=== PATIENT | male | born 1960 | race Caucasian/White ===

== ENCOUNTER 2020-08-03 13:55 | Inpatient (IN) ==
[2020-08-03] MEDS ORDERED: SODIUM CHLORIDE 1,000 ML IV STA ×2 (14:27→17:25)
--- NOTE | 2020-08-03 14:39 | ED.PDOC ---
General ED Provider: Dr. JIMMY LOAIZA Chief Complaint: Headache Stated Complaint: Feeling very bad, severe head ache, poor appetite, minimal intake for past 2 weeks. Positive for COVID 19 on07/30 Time Seen by Provider: 08/03/20 14:00 Mode of Arrival: Walk-In Information Source: Patient Exam Limitations: No limitations Primary Care Provider: LORENA HOOVER Nursing and Triage Documentation Reviewed and Agree: Yes Does patient meet sepsis criteria?: No If yes, has appropriate treatment been initiated?: No System Inflammatory Response Syndrome: Not Applicable Sepsis Protocol: For patient's 13 years and over: Temp is 96.8 and below OR 101 and greater Pulse >90 BPM Resp >20/minute Acutely Altered Mental Status Are patient's symptoms suggestive of a new infection, such as: -Pneumonia -Skin, Soft Tissue -Endocarditis -UTI -Bone, Joint Infection -Implantable Device -Acute Abdominal Infection -Wound Infection -Meningitis -Blood Stream Catheter Infection -Unknown Neurological Complaint Exam Headache Complaint/Exam Onset: Gradual Duration: 7days Symptoms Are: Still present Timing: Constant Episodes Lasting: Days Worst Headache Ever: No Initial Severity: Severe Current Severity: Moderate Location: Diffuse Character: Reports Pressure Aggravating: Reports Position change Alleviating: Reports Position change Associated Signs and Symptoms: Reports Dizziness, Seizure, Nausea, Vomiting, Sinus pressure, Fever, Neck pain, Neck stiffness, Decreased LOC and Visual changes Related Surgical History: Reports None SAH Risk Factors: Reports None Meningitis Risk Factors: Reports None SDH Risk Factors: Reports None Temporal Arteritis Risk Factors: Reports None Normal Head CT Within Last 12 Months: No Temporal Artery Tenderness: Present None Sinus Tenderness: Present Frontal TMJ Tenderness: Present None Meningeal Signs Positive: No Pain on Passive Flexion-Positive Kernig's: No ROM Limited In: No Limitiations Focal Weakness: Present None Focal Sensory Loss: Present None Gait: Normal Nystagmus Present: No Gag Reflex Present: No [id number]: Normal Findings Babinski Sign: Negative Right and Negative Left Heel to Toe Normal: Yes Differential Diagnoses: Sinus Headache, Tension Headache and Viral Syndrome Review of Systems Review Of Systems Constitutional: Reports No symptoms, Fever, Malaise, Weakness and Loss of appetite Eyes: Reports No symptoms Ears, Nose, Mouth, Throat: Reports No symptoms Respiratory: Reports No symptoms Cardiac: Reports No symptoms GI: Reports No symptoms : Reports No symptoms Musculoskeletal: Reports No symptoms Skin: Reports No symptoms Neurological: Reports No symptoms Endocrine: Reports No symptoms Hematologic/Lymphatic: Reports No symptoms All Other Systems: Reviewed and Negative PFSH Family History Other No known health problems Social History (Updated 08/03/20 @ 19:47 by ROGER MIGUEL LPN) Passive smoking exposure: No Surgical History (Updated 08/03/20 @ 19:46 by ROGER MIGUEL LPN) No history of previous surgery Physical Exam Physical Exam Appearance: Reports Well-appearing, No pain distress and Well-nourished; Denies Not Applicable Ill-appearing: None Pain Distress: None Eyes: Reports MIRIAM, EOMI and Conjunctiva clear ENT: Reports Ears normal, Nose normal and Oropharynx normal Neck: Supple Respiratory: Reports Airway patent, Breath sounds clear, Breath sounds equal and Respirations nonlabored Cardiovascular: Reports RRR, Pulses normal, No rub and No murmur GI/: Reports Soft, Nontender, No masses, Bowel sounds normal and No Organomegaly Musculoskeletal: Reports Normal strength, ROM intact, No edema and No calf tenderness Skin: Reports Warm, Dry and Normal color Neurological: Reports Sensation intact, Motor intact, Reflexes intact, Cranial nerves intact, Alert and Oriented Psychiatric: Reports Affect appropriate and Mood appropriate Interpretation Radiology Interpretation Exam Interpreted: CT Scan and Other (Scattered ground-glass with alveolar opacity compatible with the given diagnosis.) Xray Comments: Chest:No evidence of pulmonary embolus. Physician Notification Case Discussed Physician Notified: Dr Lowe:Discussed Case-advised to transfer to [facility] - adm hospitalist Time of Notification: 16:00 Physician Notified: Dr Lowe advised no beds at [facility]/advised job placement officer pt to [facility]- Time of Notification: 17:15 Endorsed To/Discussed With: Admit to Dr Hoover-Rocio protocol Time of Discussion: 17:20 Admit To: Inpatient Consult With: Chrissy/Kiko Critical Care Note Critical Care Note Total Critical Care Time (mins): 60 Course Course Hematology/Chemistry: 08/04/20 04:50 08/04/20 04:50 Orders, Labs, Meds: Lab Review 08/03/20 08/03/20 08/03/20 14:50 14:50 14:50 WBC 8.53 RBC 4.24 L Hgb 13.7 L Hct 39.2 L MCV 92.5 MCH 32.3 H MCHC 34.9 RDW Coeff of Jovana 12.4 Plt Count 198 Immature Gran % (Auto) 0.9 Neut % (Auto) 77.3 H Lymph % (Auto) 15.5 Cedar % (Auto) 6.2 Eos % (Auto) 0.0 Baso % (Auto) 0.1 Neut # (Auto) 6.6 Lymph # (Auto) 1.3 Cedar # (Auto) 0.5 Eos # (Auto) 0.0 Baso # (Auto) 0.0 Immature Gran # (Auto) 0.1 Sodium 135.0 Potassium 3.98 Chloride 101.4 Carbon Dioxide 25.6 Anion Gap 11.98 BUN 24.3 H Creatinine 1.10 Estimated GFR (MDRD) 69.00 BUN/Creatinine Ratio 22.09 Glucose 130.9 H Lactic Acid Calcium 7.97 L Magnesium 2.31 H Ferritin Total Bilirubin 0.95 AST 195.6 H ALT 169.2 H Alkaline Phosphatase 105.5 Troponin I Total Protein 7.15 Albumin 3.87 Globulin 3.28 Albumin/Globulin Ratio 1.17 Lipase 156.2 Procalcitonin 0.49 08/03/20 08/03/20 08/03/20 14:50 14:50 14:50 WBC RBC Hgb Hct MCV MCH MCHC RDW Coeff of Jovana Plt Count Immature Gran % (Auto) Neut % (Auto) Lymph % (Auto) Cedar % (Auto) Eos % (Auto) Baso % (Auto) Neut # (Auto) Lymph # (Auto) Cedar # (Auto) Eos # (Auto) Baso # (Auto) Immature Gran # (Auto) Sodium Potassium Chloride Carbon Dioxide Anion Gap BUN Creatinine Estimated GFR (MDRD) BUN/Creatinine Ratio Glucose Lactic Acid 1.12 Calcium Magnesium Ferritin 3150.00 H Total Bilirubin AST ALT Alkaline Phosphatase Troponin I 0.034 Total Protein Albumin Globulin Albumin/Globulin Ratio Lipase Procalcitonin Orders Category Date Time Status ABG DRAW REQUEST Routine CARDIO 08/03/20 17:23 Completed OXYGEN Routine CARDIO 08/03/20 17:26 Active ACTIVITY .BR with BRP CARE 08/03/20 17:27 Completed CONTINUOUS PULSE OX (NURSING) PULSEOX CARE 08/03/20 17:23 Completed INTAKE & OUTPUT Q8HR CARE 08/03/20 17:26 Active NPO REMINDER: IMAGING ONCE CARE 08/03/20 14:24 Completed VITAL SIGNS Q4HR CARE 08/03/20 17:27 Active REGULAR DIET DIETARY 08/03/20 Dinner Ordered IV [ED IV/MEDIPORT/POWERPORT] .ONCE EMERGENCY 08/03/20 14:27 Active ABG COOX Routine LAB 08/03/20 17:55 Completed BLOOD CULTURE (ED ONLY) Stat LAB 08/03/20 14:50 Received C-REACTIVE PROTEIN Routine LAB 08/03/20 14:50 Received CBC W/ AUTO DIFF Stat LAB 08/03/20 14:50 Completed CMP [COMPREHENSIVE METABOLIC PANEL] Stat LAB 08/03/20 14:50 Completed FERRITIN Routine LAB 08/03/20 14:50 Completed LACTIC ACID Stat LAB 08/03/20 14:50 Completed LIPASE Stat LAB 08/03/20 14:50 Completed MAGNESIUM Stat LAB 08/03/20 14:50 Completed PROCALCITONIN Stat LAB 08/03/20 14:50 Completed PT WITH INR Routine LAB 08/03/20 17:38 Completed TROPONIN I Routine LAB 08/03/20 14:50 Completed UA [URINALYSIS C & S IF INDICATED] Stat LAB 08/03/20 20:30 Completed 0.9 % Sodium Chloride [Saline Flush] MEDS 08/03/20 14:27 Active 1 syr IVF PRN PRN Acetaminophen [Tylenol] MEDS 08/03/20 17:26 Active 650 mg PO Q4H PRN Hydrocodone Bit/Acetaminophen [[place] 5-325] MEDS 08/03/20 17:26 Active 1 tab PO Q6H PRN Ondansetron HCl/Pf [Zofran 4 mg/2 ml] MEDS 08/03/20 17:26 Active 4 mg IVP Q6H PRN Sodium Chloride 0.9% [Sodium Chloride] 1,000 ml MEDS 08/03/20 17:25 Discontinued IV 125 mls/hr Sodium Chloride 0.9% [Sodium Chloride] 1,000 ml MEDS 08/03/20 14:27 Discontinued IV BOLUS RESUSCITATION STATUS Routine OTHERS 08/03/20 17:[address] CHEST PE PROTOCOL Stat RADS 08/03/20 14:24 Completed Medications Generic Name Dose Route Start Last Admin Trade Name Freq PRN Reason Stop Dose Admin Acetaminophen 650 mg 08/03/20 17:26 08/03/20 18:32 Acetaminophen 325 Mg Tablet PO 650 mg Q4H PRN Administration Fever >101 Hydrocodone Bitart/Acetaminophen 1 tab 08/03/20 17:26 Hydrocodone Bit/Acetaminophen 5/325 Mg Tablet PO Q6H PRN Pain Albuterol Sulfate 2 puff 08/03/20 18:18 08/04/20 05:18 Albuterol Sulfate (Ventolin Hfa) 18 Gm 1 Puff With Spacer IH 2 puff RTTID PARDEEP Administration Atorvastatin Calcium 40 mg 08/03/20 21:00 08/03/20 21:14 Atorvastatin Calcium 20 Mg Tablet PO 40 mg BEDTIME PARDEEP Administration Budesonide/Formoterol Fumarate 2 puff 08/03/20 21:00 08/04/20 09:44 Budesonide/Formoterol Fumarate 160/4.5 Mcg Inhaler IH 2 puff BID PARDEEP Administration Cholecalciferol 5,000 unit 08/03/20 18:00 08/04/20 08:35 Cholecalciferol (Vitamin D3) 1,000 Unit (25 Mcg) Tablet PO 5,000 unit DAILY PARDEEP Administration Dexamethasone Sodium Phosphate 6 mg 08/03/20 18:00 08/04/20 08:35 Dexamethasone Sod Phos 10 Mg/Ml Inj IM 6 mg DAILY PARDEEP Administration Enoxaparin Sodium 40 mg 08/04/20 09:00 08/04/20 08:36 Enoxaparin Sodium 40 Mg/0.4 Ml Syr SUBCUT 40 mg DAILY PARDEEP Administration Famotidine 40 mg 08/03/20 18:00 08/04/20 05:34 Famotidine 20 Mg Tablet PO 40 mg BIDAC PARDEEP Administration REMDESIVIR SOLUTION 100 mg/ 270 mls @ 270 mls/hr 08/05/20 09:00 Sodium Chloride IV 08/08/20 12:00 DAILY PARDEEP CEFTRIAXONE/D5W 1 GM PREMIX 1 gm in 50 mls @ 75 mls/hr 08/03/20 21:00 08/03/20 21:28 Rocephin 1 Gm/50 Ml D5w IV 08/06/20 20:59 75 mls/hr BEDTIME PARDEEP Administration Ondansetron HCl 4 mg 08/03/20 17:26 Ondansetron Hcl/Pf 4 Mg/2 Ml Sdv IVP Q6H PRN Nausea / Vomiting Sodium Chloride 1 syr 08/03/20 14:27 08/03/20 15:36 0.9% Sodium Chloride 10 Ml Disp.Syrin IVF 1 syr PRN PRN Administration To flush IV Zinc Sulfate 220 mg 08/03/20 18:00 08/04/20 08:35 Zinc Sulfate 220 Mg Capsule PO 220 mg DAILY PARDEEP Administration Discontinued Medications Generic Name Dose Route Start Last Admin Trade Name Freq PRN Reason Stop Dose Admin Sodium Chloride 1,000 mls @ 1,000 mls/hr 08/03/20 14:27 08/03/20 15:36 Sodium Chloride IV 08/03/20 15:26 1,000 mls/hr BOLUS STA Administration Sodium Chloride 1,000 mls @ 125 mls/hr 08/03/20 17:25 08/03/20 18:50 Sodium Chloride IV 08/04/20 01:24 125 mls/hr .Q8H STA Administration REMDESIVIR SOLUTION 200 mg/ 290 mls @ 145 mls/hr 08/03/20 17:36 08/03/20 18:17 Sodium Chloride IV 08/03/20 19:35 Not Given ONCE ONE REMDESIVIR SOLUTION 100 mg/ 270 mls @ 270 mls/hr 08/03/20 18:00 08/03/20 18:16 Sodium Chloride IV Not Given DAILY PARDEEP REMDESIVIR SOLUTION 200 mg/ 290 mls @ 145 mls/hr 08/04/20 09:00 08/04/20 11:1 5 Sodium Chloride IV 08/04/20 10:59 145 mls/hr ONCE ONE Administration Vital Signs: Temp Pulse Resp BP Pulse Ox 08/03/20 14:00 100.7 F H 69 18 122/59 L 91 L Discharge Plan Discharge Patient Disposition: ADMITTED INPATIENT Discharge Problem: Headache, Pneumonia due to 2019-nCoV ED Provider: JIMMY LOAIZA Condition: Stable Physician Progress Note: []
[2020-08-03 14:57] LABS: BASOPHILS % (AUTO) 0.1 % (0.0-3.0); HEMATOCRIT 39.2 % (42.0-52.0); HEMOGLOBIN 13.7 g/dl (14.0-18.0); IMMATURE GRANULOCYTE # (AUTO) 0.1 (0.0-1.0); IMMATURE GRANULOCYTE % (AUTO) 0.9 % (0.0-5.0); LYMPHOCYTES # (AUTO) 1.3 K/uL (0.60-3.4); LYMPHOCYTES % (AUTO) 15.5 (10.0-50.0); MEAN CORPUSCULAR HEMOGLOBIN 32.3 pg (27.0-31.0); MEAN CORPUSCULAR HGB CONC 34.9 (31.8-35.4); MEAN CORPUSCULAR VOLUME 92.5 fl (80.0-94.0); MONOCYTES # (AUTO) 0.5 K/uL (0.4-2.0); MONOCYTES % (AUTO) 6.2 (0-10); NEUTROPHILS # (AUTO) 6.6 K/ul (2.0-6.9); NEUTROPHILS % (AUTO) 77.3 % (42.2-75.2); PLATELET COUNT 198 10^3/uL (140-440); RDW COEFFICIENT OF VARIATION 12.4 % (11.6-14.8); RED BLOOD COUNT 4.24 10^6/ul (4.70-6.10); WHITE BLOOD COUNT 8.53 K/ul (4.2-10.2)
[2020-08-03 15:14] LABS: ALANINE AMINOTRANSFERASE 169.2 U/L (0-50); ALBUMIN 3.87 g/dL (3.5-5.0); ALKALINE PHOSPHATASE 105.5 U/L (56-119); ASPARTATE AMINO TRANSFERASE 195.6 U/L (17-59); BILIRUBIN,TOTAL 0.95 mg/dL (0.2-1.3); BLOOD UREA NITROGEN 24.3 mg/dL (9-20); CALCIUM 7.97 mg/dL (8.4-10.2); CARBON DIOXIDE 25.6 mmol/L (22-30.0); CHLORIDE 101.4 mmol/L (98-107); CREATININE 1.1 mg/dL (0.60-1.10); GLUCOSE 130.9 mg/dL (74-106); LIPASE 156.2 U/L (23-300); MAGNESIUM 2.31 mg/dL (1.6-2.3); POTASSIUM 3.98 mmol/L (3.5-5.1); TOTAL PROTEIN 7.15 g/dL (6.3-8.2)
--- NOTE | 2020-08-03 16:22 | CT ---
EXAM: CTA chest HISTORY: Congestion,Covid COMPARISON: None. FINDINGS: Postcontrast helical imaging was obtained through the thorax utilizing 3-mm collimation sa gittal and coronal reconstructions were imaged and and reviewed. Source images were utilized create rotating 3-D MIP images. The thoracic inlet is unremarkable. The ascending aorta is ectatic measuri ng 3.5 cm. Heart is normal in size without pericardial effusion. There is no evidence of pulmonary embolus. There are subcentimeter mediastinal and right hilar lymph nodes. There is no evidence of p ulmonary embolus. Scattered ground-glass and alveolar opacities noted bilaterally with prominent per ipheral component which is more coalescent in the posterior gutter regions compatible with the given diagnosis.. Bone windows reveals no evidence of lytic or blastic lesions. IMPRESSION: No evidence of pulmonary embolus. Scattered ground-glass with alveolar opacity compatible with the given diagnosis. All CT scans are performed using dose optimization techniques as appropriate to the performed exam an d include at least one of the following: Automated exposure control, adjustment of the mA and/or kV according t o size, and the use of iterative reconstruction technique.
[2020-08-03] MEDS ORDERED: TYLENOL PO PRN (17:26)
[2020-08-03] MEDS ORDERED: NORCO 5-325 PO PRN (17:26)
[2020-08-03] MEDS ORDERED: ZOFRAN 4 MG/2 ML IVP PRN (17:26)
[2020-08-03] MEDS ORDERED: VEKLURY 200 MG in SODIUM CHLORIDE 250 ML IV ONE (17:36)
[2020-08-03 17:51] LABS: PROTHROMBIN TIME 10.6 SEC (9.3-11.0)
[2020-08-03] MEDS ORDERED: VEKLURY 100 MG in SODIUM CHLORIDE 250 ML IV SCH (18:00)
[2020-08-03] MEDS ORDERED: VENTOLIN HFA (PER PUFF-WITH SPACER) IH SCH (18:00)
[2020-08-03 18:08] LABS: ABG PH 7.47 (7.35-7.45); BEecf -0.4 (-2.0-3.0); COHb 1.9 (0.5-1.5); HCO3 23.3 (21-28); MetHb 1.1 (0-1.5); TCO2 24.3 (19-24); sO2 92.2 % (94-98)
[2020-08-03] MEDS: VENTOLIN HFA (PER PUFF-WITH SPACER) IH SCH ×2 (18:30→20:00)
[2020-08-03] MEDS: PEPCID PO SCH (18:31)
[2020-08-03] MEDS: DECADRON IM SCH (18:31)
[2020-08-03] MEDS: VITAMIN D PO SCH (18:32)
[2020-08-03] MEDS: ZINC-220 PO SCH (18:32)
[2020-08-03 18:49] VITALS: BMI 27.3
[2020-08-03 20:37] LABS: BILIRUBIN,URINE Negative (NEGATIVE); CLARITY,URINE Clear (CLEAR); COLOR,URINE Yellow (YELLOW); GLUCOSE, URINE (UA) Negative (NEGATIVE); KETONES,URINE Negative (NEGATIVE); LEUKOCYTE ESTERASE ,URINE Negative (NEGATIVE); NITRITE,URINE Negative (NEGATIVE); PH,URINE 5.5 (5-9); PROTEIN,URINE 3+ (NEGATIVE); URINE, BLOOD 1+ (NEGATIVE); UROBILINOGEN,URINE 0.2 (0.2)
[2020-08-03 20:43] LABS: AMORPHOUS SEDIMENT,UR TRACE (NOT PRESENT); SQUAMOUS EPITHELIAL CELL,UR 0-2 (0-5); URINE RBC, MICROSCOPIC 0-2 (0-2)
[2020-08-03] MEDS: LIPITOR PO SCH (21:14)
[2020-08-03] MEDS: SYMBICORT 160-4.5 MCG INHALER IH SCH (21:14)
[2020-08-03] MEDS: ROCEPHIN 1 GM/50 ML D5W 1 GM/50 ML BAG IV SCH (21:28)
[2020-08-04 04:51] LABS: HEMATOCRIT 39.7 % (42.0-52.0); HEMOGLOBIN 13.4 g/dl (14.0-18.0); IMMATURE GRANULOCYTE # (AUTO) 0.1 (0.0-1.0); IMMATURE GRANULOCYTE % (AUTO) 1.5 % (0.0-5.0); LYMPHOCYTES # (AUTO) 0.9 K/uL (0.60-3.4); LYMPHOCYTES % (AUTO) 14.2 (10.0-50.0); MEAN CORPUSCULAR HEMOGLOBIN 31.8 pg (27.0-31.0); MEAN CORPUSCULAR HGB CONC 33.8 (31.8-35.4); MEAN CORPUSCULAR VOLUME 94.1 fl (80.0-94.0); MONOCYTES # (AUTO) 0.2 K/uL (0.4-2.0); MONOCYTES % (AUTO) 3.8 (0-10); NEUTROPHILS # (AUTO) 4.9 K/ul (2.0-6.9); NEUTROPHILS % (AUTO) 80.5 % (42.2-75.2); PLATELET COUNT 195 10^3/uL (140-440); RDW COEFFICIENT OF VARIATION 12.7 % (11.6-14.8); RED BLOOD COUNT 4.22 10^6/ul (4.70-6.10); WHITE BLOOD COUNT 6.11 K/ul (4.2-10.2)
[2020-08-04 05:08] LABS: BLOOD UREA NITROGEN 18.9 mg/dL (9-20); CALCIUM 7.41 mg/dL (8.4-10.2); CARBON DIOXIDE 23.8 mmol/L (22-30.0); CHLORIDE 108.7 mmol/L (98-107); CREATININE 0.76 mg/dL (0.60-1.10); GLUCOSE 149.9 mg/dL (74-106); POTASSIUM 4.34 mmol/L (3.5-5.1); SODIUM 139.2 mmol/L (134.5-145)
[2020-08-04] MEDS: VENTOLIN HFA (PER PUFF-WITH SPACER) IH SCH ×3 (05:18→20:35)
[2020-08-04] MEDS: PEPCID PO SCH ×2 (05:34→17:33)
[2020-08-04] MEDS: ZINC-220 PO SCH (08:35)
[2020-08-04] MEDS: VITAMIN D PO SCH (08:35)
[2020-08-04] MEDS: DECADRON IM SCH (08:35)
[2020-08-04] MEDS: LOVENOX SUBCUT SCH (08:36)
[2020-08-04] MEDS ORDERED: VEKLURY 200 MG in SODIUM CHLORIDE 250 ML IV ONE (09:00)
[2020-08-04] MEDS: SYMBICORT 160-4.5 MCG INHALER IH SCH ×2 (09:44→21:02)
--- NOTE | 2020-08-04 15:00 | DI ---
EXAM: Chest one view HISTORY: Shortness of breath COMPARISON: Same-day CT TECHNIQUE: Single view of the chest was performed FINDINGS: Normal heart size. Normal mediastinal contour. Patchy bilateral ground-glass opacities. No pleural effusion or pneumothorax. No acute osseous abnormality. IMPRESSION: Bilateral multifocal pneumonia, similar to same-day CT.
[2020-08-04] MEDS: LIPITOR PO SCH (21:01)
[2020-08-04] MEDS: ROCEPHIN 1 GM/50 ML D5W 1 GM/50 ML BAG IV SCH (21:02)
[2020-08-05 00:49] LABS: ADENOVIRUS F40/41 (PCR) NOT DETECTED (NOT DETECT); ASTROVIRUS (PCR) NOT DETECTED (NOT DETECT); CAMPYLOBACTER (PCR) NOT DETECTED (NOT DETECT); CRYPTOSPORIDIUM (PCR) NOT DETECTED (NOT DETECT); CYCLOSPORA CAYETANENSIS (PCR) NOT DETECTED (NOT DETECT); ENTAMOEBA HISTOLYTICA (PCR) NOT DETECTED (NOT DETECT); NOROVIRUS GI/GII (PCR) NOT DETECTED (NOT DETECT); ROTAVIRUS A (PCR) NOT DETECTED (NOT DETECT); SALMONELLA(PCR) NOT DETECTED (NOT DETECT); SAPOVIRUS (PCR) NOT DETECTED (NOT DETECT); SHIGA-LIKE TOXIN E.COLI (PCR) NOT DETECTED (NOT DETECT); YERSINIA ENTEROCOLITICA (PCR) NOT DETECTED (NOT DETECT)
[2020-08-05 02:04] LABS: C DIFF A/B (PCR) NOT DETECTED (NOT DETECT)
[2020-08-05] MEDS: VENTOLIN HFA (PER PUFF-WITH SPACER) IH SCH ×3 (05:10→19:44)
[2020-08-05 05:16] LABS: BASOPHILS % (AUTO) 0.1 % (0.0-3.0); HEMATOCRIT 38.7 % (42.0-52.0); HEMOGLOBIN 13.4 g/dl (14.0-18.0); IMMATURE GRANULOCYTE # (AUTO) 0.1 (0.0-1.0); IMMATURE GRANULOCYTE % (AUTO) 0.9 % (0.0-5.0); LYMPHOCYTES # (AUTO) 1.3 K/uL (0.60-3.4); LYMPHOCYTES % (AUTO) 13.8 (10.0-50.0); MEAN CORPUSCULAR HEMOGLOBIN 31.8 pg (27.0-31.0); MEAN CORPUSCULAR HGB CONC 34.6 (31.8-35.4); MEAN CORPUSCULAR VOLUME 91.7 fl (80.0-94.0); MONOCYTES # (AUTO) 0.6 K/uL (0.4-2.0); MONOCYTES % (AUTO) 6.5 (0-10); NEUTROPHILS # (AUTO) 7.5 K/ul (2.0-6.9); NEUTROPHILS % (AUTO) 78.7 % (42.2-75.2); PLATELET COUNT 255 10^3/uL (140-440); RDW COEFFICIENT OF VARIATION 12.3 % (11.6-14.8); RED BLOOD COUNT 4.22 10^6/ul (4.70-6.10); WHITE BLOOD COUNT 9.56 K/ul (4.2-10.2)
[2020-08-05 05:34] LABS: PROTHROMBIN TIME 11.1 SEC (9.3-11.0)
[2020-08-05] MEDS: PEPCID PO SCH ×2 (05:35→16:33)
[2020-08-05 05:41] LABS: ALANINE AMINOTRANSFERASE 167.9 U/L (0-50); ALBUMIN 3.13 g/dL (3.5-5.0); ALKALINE PHOSPHATASE 85.8 U/L (56-119); BILIRUBIN,TOTAL 0.6 mg/dL (0.2-1.3); BLOOD UREA NITROGEN 18.4 mg/dL (9-20); CALCIUM 7.97 mg/dL (8.4-10.2); CARBON DIOXIDE 22.2 mmol/L (22-30.0); CHLORIDE 110.7 mmol/L (98-107); CREATININE 0.81 mg/dL (0.60-1.10); GLUCOSE 126.6 mg/dL (74-106); POTASSIUM 3.96 mmol/L (3.5-5.1); TOTAL PROTEIN 6.21 g/dL (6.3-8.2)
[2020-08-05 07:14] LABS: C-REACTIVE PROTEIN 123 mg/L (0-10)
[2020-08-05] MEDS: SYMBICORT 160-4.5 MCG INHALER IH SCH ×2 (08:56→21:16)
[2020-08-05] MEDS: ZINC-220 PO SCH (09:00)
[2020-08-05] MEDS: LOVENOX SUBCUT SCH (09:00)
[2020-08-05] MEDS: VITAMIN D PO SCH (09:00)
[2020-08-05] MEDS: DECADRON IM SCH ×2 (09:00→21:15)
[2020-08-05] MEDS: VEKLURY 100 MG in SODIUM CHLORIDE 250 ML IV SCH (09:15)
[2020-08-05] MEDS: LIPITOR PO SCH (21:15)
[2020-08-05] MEDS: ROCEPHIN 1 GM/50 ML D5W 1 GM/50 ML BAG IV SCH (21:16)
[2020-08-06] MEDS: VENTOLIN HFA (PER PUFF-WITH SPACER) IH SCH ×3 (05:05→20:00)
[2020-08-06 05:21] LABS: PROTHROMBIN TIME 11.3 SEC (9.3-11.0)
[2020-08-06 05:24] LABS: ALANINE AMINOTRANSFERASE 185.4 U/L (0-50); ALBUMIN 3.38 g/dL (3.5-5.0); ALKALINE PHOSPHATASE 91.3 U/L (56-119); BILIRUBIN,TOTAL 0.77 mg/dL (0.2-1.3); CALCIUM 8.29 mg/dL (8.4-10.2); CARBON DIOXIDE 22.9 mmol/L (22-30.0); CREATININE 0.94 mg/dL (0.60-1.10); GLUCOSE 144.3 mg/dL (74-106); POTASSIUM 4.17 mmol/L (3.5-5.1); SODIUM 141.1 mmol/L (134.5-145); TOTAL PROTEIN 6.44 g/dL (6.3-8.2)
[2020-08-06] MEDS: PEPCID PO SCH ×2 (05:39→17:20)
[2020-08-06] MEDS: VITAMIN D PO SCH (08:10)
[2020-08-06] MEDS: ZINC-220 PO SCH (08:11)
[2020-08-06] MEDS: LOVENOX SUBCUT SCH (08:11)
[2020-08-06] MEDS: DECADRON IM SCH ×2 (08:11→20:09)
[2020-08-06] MEDS: SYMBICORT 160-4.5 MCG INHALER IH SCH ×2 (08:39→20:10)
[2020-08-06] MEDS: VEKLURY 100 MG in SODIUM CHLORIDE 250 ML IV SCH (08:57)
[2020-08-06] MEDS: LIPITOR PO SCH (20:08)
[2020-08-06] MEDS: ROCEPHIN 1 GM/50 ML D5W 1 GM/50 ML BAG IV SCH (20:09)
[2020-08-07] MEDS: VENTOLIN HFA (PER PUFF-WITH SPACER) IH SCH ×3 (05:08→19:40)
[2020-08-07 05:12] LABS: BASOPHILS % (AUTO) 0.1 % (0.0-3.0); HEMATOCRIT 40.3 % (42.0-52.0); HEMOGLOBIN 14.1 g/dl (14.0-18.0); IMMATURE GRANULOCYTE # (AUTO) 0.2 (0.0-1.0); IMMATURE GRANULOCYTE % (AUTO) 1.7 % (0.0-5.0); LYMPHOCYTES # (AUTO) 0.9 K/uL (0.60-3.4); LYMPHOCYTES % (AUTO) 9.1 (10.0-50.0); MEAN CORPUSCULAR HEMOGLOBIN 31.8 pg (27.0-31.0); MEAN CORPUSCULAR VOLUME 90.8 fl (80.0-94.0); MONOCYTES # (AUTO) 0.6 K/uL (0.4-2.0); MONOCYTES % (AUTO) 6.2 (0-10); NEUTROPHILS # (AUTO) 8.2 K/ul (2.0-6.9); NEUTROPHILS % (AUTO) 82.9 % (42.2-75.2); PLATELET COUNT 285 10^3/uL (140-440); RDW COEFFICIENT OF VARIATION 12.2 % (11.6-14.8); RED BLOOD COUNT 4.44 10^6/ul (4.70-6.10); WHITE BLOOD COUNT 9.85 K/ul (4.2-10.2)
[2020-08-07] MEDS: PEPCID PO SCH ×2 (05:52→17:20)
[2020-08-07 07:26] LABS: PROTHROMBIN TIME 11.3 SEC (9.3-11.0)
[2020-08-07 08:17] LABS: ALANINE AMINOTRANSFERASE 206.1 U/L (0-50); ALBUMIN 3.24 g/dL (3.5-5.0); ALKALINE PHOSPHATASE 91.1 U/L (56-119); ASPARTATE AMINO TRANSFERASE 146.6 U/L (17-59); BILIRUBIN,TOTAL 0.71 mg/dL (0.2-1.3); BLOOD UREA NITROGEN 21.1 mg/dL (9-20); CALCIUM 8.23 mg/dL (8.4-10.2); CARBON DIOXIDE 20.3 mmol/L (22-30.0); CHLORIDE 111.4 mmol/L (98-107); CREATININE 0.83 mg/dL (0.60-1.10); GLUCOSE 135.8 mg/dL (74-106); POTASSIUM 4.12 mmol/L (3.5-5.1); SODIUM 140.1 mmol/L (134.5-145); TOTAL PROTEIN 6.31 g/dL (6.3-8.2)
[2020-08-07] MEDS: SYMBICORT 160-4.5 MCG INHALER IH SCH ×2 (09:58→20:06)
[2020-08-07] MEDS: VITAMIN D PO SCH (10:04)
[2020-08-07] MEDS: ZINC-220 PO SCH (10:05)
[2020-08-07] MEDS: VEKLURY 100 MG in SODIUM CHLORIDE 250 ML IV SCH (10:05)
[2020-08-07] MEDS: DECADRON IM SCH ×2 (10:05→20:06)
[2020-08-07] MEDS: LOVENOX SUBCUT SCH (10:06)
[2020-08-07] MEDS: LIPITOR PO SCH (20:06)
[2020-08-07] MEDS: ROCEPHIN 1 GM/50 ML D5W 1 GM/50 ML BAG IV SCH (20:06)
[2020-08-08] MEDS: VENTOLIN HFA (PER PUFF-WITH SPACER) IH SCH (04:55)
[2020-08-08 05:39] LABS: BASOPHILS % (AUTO) 0.1 % (0.0-3.0); HEMATOCRIT 40.5 % (42.0-52.0); HEMOGLOBIN 14.3 g/dl (14.0-18.0); IMMATURE GRANULOCYTE # (AUTO) 0.1 (0.0-1.0); IMMATURE GRANULOCYTE % (AUTO) 1.6 % (0.0-5.0); LYMPHOCYTES # (AUTO) 0.8 K/uL (0.60-3.4); LYMPHOCYTES % (AUTO) 9.9 (10.0-50.0); MEAN CORPUSCULAR HEMOGLOBIN 31.8 pg (27.0-31.0); MEAN CORPUSCULAR HGB CONC 35.3 (31.8-35.4); MONOCYTES # (AUTO) 0.6 K/uL (0.4-2.0); MONOCYTES % (AUTO) 6.8 (0-10); NEUTROPHILS # (AUTO) 6.7 K/ul (2.0-6.9); NEUTROPHILS % (AUTO) 81.6 % (42.2-75.2); PLATELET COUNT 310 10^3/uL (140-440); RDW COEFFICIENT OF VARIATION 12.3 % (11.6-14.8); WHITE BLOOD COUNT 8.18 K/ul (4.2-10.2)
[2020-08-08 05:51] LABS: PROTHROMBIN TIME 11.4 SEC (9.3-11.0)
[2020-08-08 05:52] LABS: ALANINE AMINOTRANSFERASE 224.8 U/L (0-50); ALBUMIN 3.47 g/dL (3.5-5.0); ALKALINE PHOSPHATASE 93.4 U/L (56-119); ASPARTATE AMINO TRANSFERASE 131.3 U/L (17-59); BILIRUBIN,TOTAL 0.89 mg/dL (0.2-1.3); CALCIUM 8.35 mg/dL (8.4-10.2); CARBON DIOXIDE 22.9 mmol/L (22-30.0); CHLORIDE 109.4 mmol/L (98-107); CREATININE 0.78 mg/dL (0.60-1.10); POTASSIUM 4.2 mmol/L (3.5-5.1); SODIUM 139.1 mmol/L (134.5-145); TOTAL PROTEIN 6.58 g/dL (6.3-8.2)
[2020-08-08 06:16] VITALS: TEMP 97.6
[2020-08-08] MEDS: PEPCID PO SCH (06:17)
[2020-08-08] MEDS: VITAMIN D PO SCH (08:11)
[2020-08-08] MEDS: ZINC-220 PO SCH (08:11)
[2020-08-08] MEDS: DECADRON IM SCH (08:11)
[2020-08-08] MEDS: LOVENOX SUBCUT SCH (08:14)
[2020-08-08] MEDS: VEKLURY 100 MG in SODIUM CHLORIDE 250 ML IV SCH (08:20)
[2020-08-08] MEDS: SYMBICORT 160-4.5 MCG INHALER IH SCH (08:33)
[2020-08-08] MEDS ORDERED: SODIUM CHLORIDE 1,000 ML IV SCH (09:50)
[2020-08-08] MEDS ORDERED: ATROPINE SULFATE PFS IVP ONE (09:53)
[2020-08-08] MEDS ORDERED: ATROPINE SULFATE SDV IVP ONE (10:05)
[2020-08-08 11:06] VITALS: BP 118/60
== END 2020-08-08 15:22 | disposition short-term general hospital (02) | DRG 102 ==
LOC: ED 13:55 → SCU 17:28
PROVIDERS: ADMIT Family Medicine; ATTEND Family Medicine